=== PATIENT | female | born 1985 | race Two or more races ===

== ENCOUNTER 2017-10-15 18:12 | Emergency (ER) | payer OTHER ==
[~2017-10-15] VITALS: Ht 157.5 cm; Wt 49.9 kg
[~2017-10-15 18:12] MED LIST: ALLEGRA ALLERG180 MG PO
== END 2017-10-15 22:02 | disposition home or self-care (01) ==
LOC: ER 18:12
DX: N30.20 Other chronic cystitis without hematuria (principal); N76.0 Acute vaginitis; R82.79 Other abnormal findings on microbiological examination of urine